=== PATIENT | male | born 1935 | race Caucasian/White ===

== ENCOUNTER 2016-06-04 07:17 | Day surgery (SDC) | payer OTHER, MEDICARE ==
[2016-06-03 11:29] VITALS: BMI 23.0
[2016-06-04 07:51] LABS: URINE APPEARANCE CLEAR; URINE BILIRUBIN NEGATIVE (NEGATIVE); URINE BLOOD NEGATIVE (NEGATIVE); URINE COLOR LTYELLOW; URINE GLUCOSE (UA) NEGATIVE (NEGATIVE); URINE KETONE NEGATIVE (NEGATIVE); URINE LEUK ESTERASE NEGATIVE (NEGATIVE); URINE NITRITE NEGATIVE (NEGATIVE); URINE UROBILINOGEN NEGATIVE E.U./dl (0.2-1.0)
[2016-06-04 08:06] LABS: INR 1.03 (0.82-1.09); PROTHROMBIN TIME (PATIENT) 11.3 SEC (9.98-11.88); URINE PROTEIN 1+ (NEGATIVE)
[2016-06-04 08:09] LABS: ACTIVATED PTT 31.1 SECONDS (26.9-34.4)
[2016-06-04] MEDS ORDERED: PROPOFOL 20 ML ONE ×2 (09:20)
[2016-06-04] MEDS ORDERED: ceFAZolin SODIUM 1 GM VIAL ONE (09:26)
[2016-06-04] MEDS ORDERED: BUPIVACAINE HCL/PF 0.5% (5MG/ML) 10 ML VIAL ONE (09:29)
[2016-06-04] MEDS ORDERED: LIDOCAINE HCL 1%, 10 MG/ML (20ML VIAL) ONE (09:29)
[2016-06-04] MEDS ORDERED: ceFAZolin SODIUM 1 GM VIAL IVPB ONE (09:49)
[2016-06-04] MEDS ORDERED: LIDOCAINE HCL 1%, 10 MG/ML (50 mL VIAL) IJ ONE (10:01)
[2016-06-04] MEDS ORDERED: BUPIVACAINE HCL/PF (5 MG/ML) 30 ML VIAL IJ ONE (10:01)
--- NOTE | 2016-06-04 10:27 | HP ---
Satellite [facility] - Chief Complaint Chief Complaint: left hand pain, numbness, weakness History of Present Illness: left CTS History Source: Patient Limitations to Obtaining History: No Limitations - Past Medical History Allergies/Adverse Reactions: Allergies Allergy/AdvReac Type Severity Reaction Status Date / Time No Known Drug Allergies Allergy Verified 06/04/16 07:59 - Current Medications Current Medications: Home Medications Medication Instructions Recorded Amlodipine Besylate 5 mg PO DAILY 06/03/16 Amlodipine Besylate [Norvasc -] 2.5 mg PO HS 06/03/16 Aspirin [Aspirin EC] 81 mg PO DAILY 06/03/16 Atorvastatin Ca [Lipitor] 20 mg PO HS 06/03/16 Hydrochlorothiazide [Hctz -] 12.5 mg PO DAILY 06/03/16 Multivitamins [Tab-A-Vit -] 1 tab PO DAILY 06/03/16 Omeprazole Magnesium [Prilosec] 10 mg PO DAILY 06/03/16 Tamsulosin HCl [Flomax] 0.4 mg PO HS 06/03/16 Satellite Physical Exam - Physical Examination Vital Signs: Vital Signs Period Temp Pulse Resp BP Sys/Avilez Pulse Ox Last 24 Hr 98.3 F 65 18 168/74 99 General Appearance: Well Nourished ENT: Clear Lung: Clear to auscultation Heart: Regular rate & rhythm Breasts: Soft Abdomen: Soft Extremities: No edema Satellite Impression/Plan - Impression/Plan Impression: left CTS Operative Procedure: left CTR, tenosynovectomy Date to be Performed: 06/04/16
--- NOTE | 2016-06-04 10:28 | OP ---
Operative Note - Note: Operative Date: 06/04/16 Pre-Operative Diagnosis: left CTS, tenosynovitis Operation: left CTR, tenosynovectomy Post-Operative Diagnosis: Same as Pre-op Surgeon: Bari Laurent Anesthesiologist/COMMUNITY EDUCATOR: Yadi Torres Anesthesia: General, Local Specimens Removed: tenosynovium Estimated Blood Loss (mls): 0 Drains, Volume Out (mls): 0 Blood Volume Replaced (mls): 0 Fluid Volume Replaced (mls): 500 Operative Report Dictated: Yes
[2016-06-04] MEDS ORDERED: oxyCODONE HCL 5 MG TABLET PO PRN (10:40)
[2016-06-04] MEDS ORDERED: ONDANSETRON 4 MG/2 ML VIAL IVPUSH PRN (10:40)
[2016-06-04] MEDS ORDERED: LACTATED RINGERS SOLUTION 1,000 ML IV SCH (10:45)
[2016-06-04 12:49] VITALS: TEMP 98
[2016-06-04 12:51] VITALS: BP 138/62; PULSE 58
--- NOTE | 2016-06-05 08:22 | SPEC ---
DATE OF OPERATION: 06/04/2016 PREOPERATIVE DIAGNOSIS: Left carpal tunnel syndrome and tenosynovitis. POSTOPERATIVE DIAGNOSIS: Left carpal tunnel syndrome and tenosynovitis. OPERATION: Left carpal tunnel release and tenosynovectomy. SURGEON: Bari Laurent M.D. KICKBOXING INSTRUCTOR: None. MANAGER SAP: Yadi Torres CRNA ANESTHESIA: MAC, local injection of 12 mL of 0.5% Marcaine and 1% Lidocaine mix. DRAINS: None. COMPLICATIONS: None. FLUID REPLACEMENT: 500 mL of PlasmaLyte. SPECIMEN: Tenosynovium, left wrist. BLOOD LOSS: None. BLOOD GIVEN: None. 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 After understanding the potential risks, complications, alternatives and benefits of surgery versus nonsurgical treatment, the patient elected to undergo this procedure. DESCRIPTION OF PROCEDURE: The patient was brought to the operating room, peripheral IV placed and intravenous sedation was given. One gram of intravenous Ancef was given. MAC anesthesia was induced. A tourniquet was applied to the left upper arm and the left upper extremity was prepped and draped in sterile fashion. The entire case was done under 3.8 loupe magnification. A marking pen was utilized to luiz out a longitudinal incision in an already existing skin crease. Twenty mL of 0.5% Marcaine mixed with 1% Lidocaine was injected in and around the surgical incision. The left upper extremity was elevated, exsanguinated with an Esmarch bandage and the tourniquet inflated to 250mm of mercury. A No. 15 scalpel blade was utilized to cut down through the skin. Subcutaneous hemostasis was achieved with the bipolar cautery. Dissection was done through the superficial palmar fascia. Self-retaining retractors were placed into the wound. Under direct visualization, the transverse carpal ligament was transected with a No. 15 scalpel blade, exposing the median nerve and the contents of the carpal tunnel. The distal and proximal extents of the release were completed with a Littler scissor and checked with irrigation and my small finger. They were seen to be complete. Limited dissection was done on the radial side of the median nerve and more extensive dissection was done on the ulnar side of the median nerve. The patients nerve was seen to be quite compressed by epineurium and therefore a limited epineurotomy was performed. A Ragnell retractor was used to gently retract the median nerve in a radial direction. The patient had a lot of tenosynovitis and therefore a tenosynovectomy was performed off of all nine flexor tendons. This was passed off the field as tenosynovium left wrist. The floor of the carpal tunnel was checked. There were no abnormal masses or ganglion cysts. The area was copiously irrigated and washed out and closure begun. Undyed 4-0 Vicryl was used to close the deep dermal layer. Final skin reapproximation was done with horizontal mattress 4-0 nylon sutures. The area was then washed and dried, covered with Xeroform, 4x4s, fluffs between the fingers, Webril and a 4-inch plaster roll was utilized to make a volar splint, which was then wrapped with Daya and Coban. The tourniquet was taken down after a total tourniquet time of 19 minutes. There were no complications during the case. The patient tolerated the procedure well and was brought to the ambulatory recovery room in stable condition. Randall [id number] MTDD
--- NOTE | 2016-06-05 15:30 | PATH ---
Surgical Pathology Report Patient Name: KISHA JASON [facility]. Rec. #: [id number] /Age/Gender: 1935 (Age: 80) / M Account: [id number] Location: [facility] SURGICAL Taken: 06/04/2016 Received: 06/04/2016 Reported: 06/05/2016 Physicians: Bari Laurent M.D. Specimen(s) Received LEFT TENOSYNOVIUM TISSUE Clinical History Carpal tunnel syndrome Final Diagnosis SOFT TISSUE, LEFT TENOSYNOVIUM, CARPAL TUNNEL RELEASE: BENIGN TENOSYNOVIAL FIBROCONNECTIVE TISSUE WITH FOCAL MYXOID DEGENERATION. Electronically Signed Franco Ni M.D. Gross Description Received in formalin labeled "left tenosynovium tissue" is a 1.4 x 1.4 x 0.3 cm aggregate of rubio-yellow, irregular portions of soft tissue, consistent with tenosynovium. The specimen is submitted in toto in one cassette. /06/04/201606/04/2016
== END 2016-06-04 12:51 | disposition home or self-care (01) ==
LOC: JASU-SURG 07:17
PROVIDERS: ATTEND Orthopaedic Surgery
PROC: 0LB60ZZ Excision of Left Lower Arm and Wrist Tendon, Open Approach (ICD-10-PCS; 2016-06-04)
PROC: 01N50ZZ Release Median Nerve, Open Approach (ICD-10-PCS; principal; 2016-06-04 10:00)
DX: G56.02 Carpal tunnel syndrome, left upper limb (principal); M65.88 Other synovitis and tenosynovitis, other site
CPT/HCPCS: 36415; 81003; 81015; 85610; 85730; 88304-TC; 94760